=== PATIENT | female | born 1995 | race Caucasian/White ===

== ENCOUNTER 2018-05-24 18:19 | Emergency (ER) | payer BC ==
[2018-05-24 18:59] VITALS: BP 101/65
--- NOTE | 2018-05-24 19:35 | UC ---
Knee Pain HPI - HPI Summary HPI Summary: 23 yo female presents with LEFT knee pain. She tells me that she had an ACL reconstruction performed in [place] in December 2017. About 2 weeks ago she was walking and felt a painful crack in her left knee and had pain with walking for the rest of the day. That pain resolved. Today she was walking and felt another painful crack in her left knee and has been unable to bear weight since. She cannot flex her knee >45deg due to pain. She has placed herself in her knee immobilizer and is using her crutches. Denies numbness or tingling. - History of Current Complaint Chief Complaint: UCLowerExtremity Stated Complaint: KNEE INJURY Time Seen by Provider: 05/24/18 19:20 Hx Obtained From: Patient Hx Last Menstrual Period: 05/21/18 Severity Initially: Mild Severity Currently: Mild Pain Intensity: 3 Pain Scale Used: 0-10 Numeric - Allergies/Home Medications Allergies/Adverse Reactions: Allergies Allergy/AdvReac Type Severity Reaction Status Date / Time No Known Allergies Allergy Verified 05/24/18 18:59 Home Medications: Home Medications Norgestrel-Ethinyl Estradiol [Cryselle-28] 1 tab PO DAILY 05/24/18 [History Confirmed 05/24/18] PMH/Surg Hx/FS Hx/Imm Hx - Additional Past Medical History Additional PMH: None - Surgical History Surgical History: Yes Surgery Procedure, Year, and Place: LEFT ACL RECONSTRUCTION W/ PATELLAR GRAFTING , [place] AGE 10 - Family History Known Family History: Positive: None - Social History Occupation: Student Lives: With Family Alcohol Use: Occasionally Substance Use Type: None Smoking Status (MU): Never Smoked Tobacco Review of Systems Constitutional: Negative Skin: Negative Respiratory: Negative Cardiovascular: Negative Neurovascular: Negative Musculoskeletal: Other: - Left knee pain Neurological: Negative Psychological: Negative All Other Systems Reviewed And Are Negative: Yes Physical Exam - Summary Physical Exam Summary: GENERAL: NAD. WDWN. No pain distress. SKIN: No rashes, sores, lesions, or open wounds. CHEST: No accessory muscle use. Breathing comfortably and in no distress. CV: . Pulses intact popliteal, PT, and DP. Cap refill <2seconds MSK: LEFT KNEE: FROM. NTTP. Strength 5/5. No edema or obvious bony deformities. No patella apprehension. NEURO: Alert. Sensations intact and symmetric B/L LEs PSYCH: Age appropriate behavior. Triage Information Reviewed: Yes Vital Signs: Initial Vital Signs Temp 98.3 F 05/24/18 18:53 Pulse 82 05/24/18 18:53 Resp 16 05/24/18 18:53 BP 101/65 05/24/18 18:53 Pulse Ox 100 05/24/18 18:53 Vital Signs Reviewed: Yes Knee Pain Course/Dx - Course Course Of Treatment: XR: Negative for fracture. XR was performed before pt's physical exam. While in radiology - pt bent her knee beyond 90deg and had complete resolution of her symptoms. At time of her PE she was in no pain, was weight bearing, and had FROM without pain/difficulty. I suspect that she has scar tissue build up in/around her knee joint and this is the cracking sensation that she is feeling. Advised to f/u with her Orthopedic doctor for a recheck - she is going back to [facility] in the next few days to do this. - Differential Dx/Diagnosis Provider Diagnoses: Left knee pain Discharge - Sign-Out/Discharge Documenting (check all that apply): Patient Departure All imaging exams completed and their final reports reviewed: No - Discharge Plan Condition: Stable Disposition: HOME Patient Education Materials: Arthroscopic ACL Reconstruction (DC) Referrals: No Primary Care Phys,NOPCP [Primary Care Provider] - Additional Instructions: Please follow up with your Orthopedic doctor in [place] - Billing Disposition and Condition Condition: STABLE Disposition: Home
--- NOTE | 2018-05-25 07:51 | RAD ---
Indication: LEFT knee pain and lateral lump adjacent to patella. Previous ACL reconstruction. [place] a crack while walking today. Comparison: October 17, 2017 Technique: LEFT knee: AP, tunnel, lateral, sunrise views. Report: Postsurgical change of ACL reconstruction. Negative for significant joint effusion. Negative for fracture, malalignment, or joint space narrowing. Mild anterior soft tissue swelling superficial to the patella and infrapatellar region. IMPRESSION: #. Consider potential patellar tendinopathy. R0
== END 2018-05-24 19:58 | disposition home or self-care (01) ==
LOC: UCEAST 18:19
DX: M25.562 Pain in left knee (principal)
CPT/HCPCS: 99211; G0463